=== PATIENT | female | born 1975 ===

== ENCOUNTER 2023-01-01 14:42 | Emergency (ER) | payer SELFPAY ==
[2023-01-01 14:50] VITALS: BP 144/89; PULSE 82; RESP 20; TEMP 36.2; O2SAT 100
--- NOTE | 2023-01-01 16:02 | PC.NURSE ---
patient left without seeing provider. advised to return if needed
== END 2023-01-01 16:02 | disposition left against medical advice (07) ==
DX: R22.43 Localized swelling, mass and lump, lower limb, bilateral (principal)
CPT/HCPCS: 99199